=== PATIENT | female | born 1975 | race Caucasian/White ===

== ENCOUNTER 2017-09-25 12:19 | Inpatient (IN) | payer MEDICAID ==
[~2017-09-25] VITALS: Ht 152.4 cm; Wt 85.1 kg
[~2017-09-25 12:19] MED LIST: FERR27TA PO; PREN1TAB49 PO
[2017-09-25 12:33] VITALS: Ht 152.4 cm; Wt 85.1 kg
[2017-09-25 12:34] VITALS: BP 127/80; PULSE 79; RESP 18
--- NOTE | 2017-09-25 15:06 | HP ---
Date/Time of Note Date/Time of Note DATE: 09/25/17 TIME: 15:04 OB - History Hx of Present Free Text/Dictation Admitted complaining of uterine contractions started at 6:30 AM Chief Complaint: Uterine contractions Last Menstrual Period: Dec 24, 2016 Estimated Due Date: Oct 03, 2017 : 5 Para: 4 Care: Good Care Ultrasounds: Normal mid trimester US Obstetrical Complications: None Medical Complications: None Past Family/Social History * Past Medical, Surgical, Family and Obstetric Histories reviewed from chart. Blood Type: O+ Rubella: immune RPR/VDRL: Negative GBS Status: Negative HBsAG: Negative OB Admission Exam Vital Signs Vital Signs Vital Signs Date Time Temp Pulse Resp B/P Pulse Ox O2 Delivery O2 Flow Rate FiO2 09/25/17 12:34 98.4 79 18 127/80 Room Air Physical Exam HEENT: WNL Heart: Rhythm Normal Lungs: Clear, Equal Abdomen: WNL Extremities: Normal Reflexes: Normal Cervical Dilatation: 2cm Effacement: 50% Station: -3 Membranes: Intact Heart Rate: 140's Accelerations: Accelerations Present Decelerations: No Decelerations Varibility: Marked Contractions on Admission: 6-10 Minutes Apart Date/Time Contractions Began: September 25, 2017 at 6:30 AM Frequency of Contractions: Every 15 minutes Duration: Over 45 seconds Intensity: Mild OB Assessment/Plan Other Assessment: Term gestation Labor pain Concern about rupture of membrane occurred Other plan: We will do specific fetoprotein testing vaginally for confirmation of ruptured membrane If positive will start Pitocin augmentation of labor JESUS MANUEL GU MD Sep 25, 2017 15:06
[2017-09-25] MEDS ORDERED: LIDOCAINE 1% (MPF) 30 ML INJ INJ PRN (15:30)
[2017-09-25] MEDS ORDERED: METHYLERGONOVINE 0.2 MG INJ IM PRN (15:30)
[2017-09-25] MEDS ORDERED: MISOPROSTOL 200 MCG TAB PR PRN (15:30)
[2017-09-25] MEDS ORDERED: OXYTOCIN 30 UNITS/LR 500 ML IV SCH (15:30)
[2017-09-25] MEDS ORDERED: LACTATED RINGER'S 1,000 ML IV PRN (15:30)
[2017-09-25] MEDS ORDERED: OXYTOCIN 30 UNITS/LR 500 ML IV PRN (15:30)
[2017-09-25] MEDS ORDERED: IBUPROFEN 600 MG TAB PO PRN (15:30)
[2017-09-25] MEDS ORDERED: BUTORPHANOL 2 MG INJ IV PRN (15:30)
[2017-09-25] MEDS ORDERED: CARBOPROST 250 MCG INJ IM PRN (15:30)
[2017-09-25 16:01] LABS: BASOPHILS % 0.4 % (0.0-2.0); EOSINOPHILS % 0.3 % (0.0-7.0); HEMATOCRIT 42.7 % (37.0-47.0); HEMOGLOBIN 14.4 g/dl (12.0-16.0); LYMPHOCYTES % 19.2 % (15.0-51.0); MEAN CORPUSCULAR HEMOGLOBIN 29.4 pg (29.0-33.0); MEAN CORPUSCULAR HGB CONC 33.7 g/dl (32.0-37.0); MEAN CORPUSCULAR VOLUME 87.3 fl (82.0-101.0); MONOCYTE # 0.5 10^3/ul (0.3-0.9); MONOCYTES % 4.9 % (0.0-11.0); NEUTROPHIL # 7.9 10^3/ul (1.6-7.5); NEUTROPHILS % 74.8 % (39.0-77.0); PLATELET COUNT 240 10^3/UL (140-415); RED BLOOD COUNT 4.89 10^6/ul (4.20-5.40); RED CELL DISTRIBUTION WIDTH 14.9 % (11.5-14.5); WHITE BLOOD COUNT 10.6 10^3/ul (4.8-10.8)
[2017-09-25 16:23] LABS: INR 0.84; PARTIAL THROMBOPLASTIN TIME 29.7 Sec (25.0-35.0); PROTIME 11.5 Sec (12.2-14.2); PT RATIO 0.9
[2017-09-25] MEDS: LACTATED RINGER'S 1,000 ML IV SCH ×2 (16:26→16:35)
[2017-09-25] MEDS ORDERED: MINERAL OIL LIGHT 10 ML VIAL TOP ONE (16:30)
[2017-09-25] MEDS ORDERED: FENTAnyl 2MCG/ML-ROPIV 0.2% 100 ML ONE (16:34)
[2017-09-25] MEDS ORDERED: ONDANSETRON 4 MG INJ IV PRN ×2 (19:00→21:30)
[2017-09-25] MEDS ORDERED: FENTAnyl 2MCG/ML-ROPIV 0.2% 100 ML BAG EPI SCH ×2 (19:00→21:30)
[2017-09-25] MEDS ORDERED: TRIMETHOBENZAMIDE 100 MG/ML VIAL IM PRN ×2 (19:00→21:30)
[2017-09-25] MEDS ORDERED: DIPHENHYDRAMINE 50 MG INJ IV PRN ×2 (19:00→21:30)
[2017-09-25] MEDS ORDERED: NALOXONE (0.4 MG/ML) INJ IV PRN ×2 (19:00→21:30)
[2017-09-25] MEDS: OXYTOCIN 30 UNITS/LR 500 ML IV SCH (23:51)
--- NOTE | 2017-09-25 23:52 | LDN ---
Date/Time of Note Date/Time of Note DATE: 09/25/17 TIME: 23:50 Delivery Summary Weeks of Gestation 39 weeks Placenta Delivered: Spontaneously Meconium: none Episiotomy: No Perineal laceration: 0 Anesthesia type: Epidural Estimated blood loss: 300 Sponge & Needle done & correct: Yes All needle counts correct: Yes Any foreign bodies felt in the: No Problems: Infant Delivery Information Sex Sex: female Apgars 1 Minute: 8 5 Minute: 9 Suctioning Nose & mouth suctioned at nesha: Yes Delee suction performed: No Umbilical Cord Umbilical cord with: 3 Vessels Cord presentations: nuchal cord Nuchal cord present X: 1 Cord Blood was obtained: Yes Mother & Baby Disposition Disposition Mom & Baby to Maternity; Good: Yes MARY ANNE DUNCAN MD Sep 25, 2017 23:52
[2017-09-26] MEDS: OXYTOCIN 30 UNITS/LR 500 ML IV SCH (00:18)
--- NOTE | 2017-09-26 00:54 | DELSUM ---
Delivery Summary A-C Datetime Report Generated by CPN: 09/26/2017 00:54 DELIVERY PERSONNEL Press Tender: Perez, [place] MATERNAL INFORMATION Delivery Anesthesia: Epidural Medications in Delivery: 30 UNIT PITOCIN Estimated Blood Loss (ml): 300 Placenta Cultured: No Maternal Complications: Other Other Maternal Complications: AMA LABOR SUMMARY EDC: 09/30/2017 00:00 No. Babies in Womb: 1 Attempted: No Labor Anesthesia: Epidural LABOR INFORMATION Reason for Induction: Not Applicable Onset of Labor: 09/25/2017 06:40 Complete Dilatation: 09/25/2017 23:14 Oxytocin: N/A Group B Beta Strep: Negative Antibiotics # of Doses: 0 Steroids Given: None Reason Steroids Not Administered: Not Applicable MEMBRANES Membranes Rupture Method: Spontaneous Rupture of Membranes: 09/25/2017 22:43 Length of Rupture (hr): 0.88 Amniotic Fluid Color: Clear Amniotic Fluid Amount: Small Amniotic Fluid Odor: None STAGES OF LABOR Stage 1 hr: 16 Stage 1 min: 34 Stage 2 hr: 0 Stage 2 min: 22 Stage 3 hr: 0 Stage 3 min: 3 Total Time in Labor hr: 16 Total Time in Labor min: 59 VAGINAL DELIVERY Episiotomy: None Laceration Extension: N/A Laceration Type: None Laceration Repair: Not Applicable Initial Vag Sponge Count: 10 Final Vag Sponge Count: 10 Initial Vag Sharps Count: 1 Final Vag Sharps Count: 1 Sponge Count Correct: Yes Sharps Count Correct: Yes BABY A INFORMATION Delivery Date/Time: 09/25/2017 23:36 Method of Delivery: Vaginal Method of Delivery: Vaginal Born in Route : No : N/A Forceps: N/A Vacuum Extraction: N/A Shoulder Dystocia : N/A SHOULDER DYSTOCIA BABY A Infant Delivery Date/Time: 09/25/2017 23:36 PRESENTATION/POSITION BABY A Presentation: Cephalic Presentation: Cephalic Cephalic Presentation: Vertex Vertex Position: Left Occipital Anterior Breech Presentation: N/A PLACENTA INFORMATION BABY A Placenta Delivery Time : 09/25/2017 23:39 Placenta Method of Delivery: Spontaneous Placenta Status: Delivered SCORES BABY A Heart Rate 1 min: >100 bpm Resp Effort 1 min: Good Cry Reflex Irritability 1 min: Cough/Sneeze/Pulls Away Muscle Tone 1 min: Active Motion Color 1 min: Blue/Pale Resuscitation Effort 1 min: Tactile Stimulation SCORE 1 MIN: 8 Heart Rate 5 min: >100 bpm Resp Effort 5 min: Good Cry Reflex Irritability 5 min: Cough/Sneeze/Pulls Away Muscle Tone 5 min: Active Motion Color 5 min: Body Hallock, Extremit Blue Resuscitation Effort 5 min: Tactile Stimulation SCORE 5 MIN: 9 INFANT INFORMATION BABY A Gestational Age at Delivery: 39.2 Gestational Status: Full Term- 39- 40.6 Weeks Outcome : Liveborn Infant Condition : Stable Sex: Female Sex: Female IDENTIFICATION/MEDS BABY A ID Band Number: [id number] ID Band Location: Right Leg; Left Arm Sensor Applied: Yes Sensor Number: [id number] Sensor Location : Cord Clamp Vitamin K Given : Not Given Erythromycin Given: Not Given WEIGHT/LENGTH BABY A Birthweight (gm): 2580 Infant Weight (lb): 5 Weight (oz): 11 Length (in): 18.00 Length (cm): 45.72 CORD INFORMATION BABY A No. Cord Vessels: 3 Nuchal Cord : N/A Cord Blood Taken: Yes Infant Suction: Mouth; Nose ASSESSMENT BABY A Infant Complications: Multiple Variable Decels Physical Findings at Delivery: Within Normal Limits Respirations: Appears Normal [employer]/ALS Called : No Infant Care By: Nanci DAVID Transferred To: Remains with Mother
[2017-09-26] MEDS ORDERED: LACTATED RINGER'S 1,000 ML IV* SCH (01:58)
[2017-09-26] MEDS ORDERED: BENZOCAINE 20% 56 ML SPRAY TOP PRN (02:00)
[2017-09-26] MEDS ORDERED: OXYTOCIN 30 UNITS/LR 500 ML IV PRN (02:00)
[2017-09-26] MEDS ORDERED: MISOPROSTOL 200 MCG TAB PR PRN (02:00)
[2017-09-26] MEDS ORDERED: ACETAMINOPHEN 325 MG TAB PO PRN (02:00)
[2017-09-26] MEDS ORDERED: METHYLERGONOVINE 0.2 MG INJ IM PRN (02:00)
[2017-09-26] MEDS ORDERED: CARBOPROST 250 MCG INJ IM PRN (02:00)
[2017-09-26] MEDS ORDERED: WITCH HAZEL/GLYCERIN PAD PR PRN (02:00)
[2017-09-26] MEDS ORDERED: HYDROCODONE/APAP (5/325) TAB PO PRN (02:00)
[2017-09-26] MEDS ORDERED: DIBUCAINE 1% 30 GM OINT PR PRN (02:00)
[2017-09-26 02:30] VITALS: BP 134/50; PULSE 88; RESP 18
[2017-09-26 04:00] VITALS: BP 138/69; PULSE 83; RESP 18
[2017-09-26] MEDS: IBUPROFEN 600 MG TAB PO SCH ×3 (05:30→17:44)
[2017-09-26 08:20] VITALS: BP 125/75; PULSE 81; RESP 18
[2017-09-26] MEDS: SENNA/DOCUSATE NA (8.6MG/50MG) TAB PO SCH ×2 (09:28→21:20)
[2017-09-26 10:47] LABS: BASOPHILS % 0.3 % (0.0-2.0); EOSINOPHILS % 0.3 % (0.0-7.0); HEMATOCRIT 35.6 % (37.0-47.0); HEMOGLOBIN 12.1 g/dl (12.0-16.0); LYMPHOCYTES # 2.1 10^3/ul (0.8-2.9); LYMPHOCYTES % 15.2 % (15.0-51.0); MEAN CORPUSCULAR HEMOGLOBIN 29.6 pg (29.0-33.0); MEAN PLATELET VOLUME 9.3 fl (7.4-10.4); MONOCYTE # 0.6 10^3/ul (0.3-0.9); MONOCYTES % 4.6 % (0.0-11.0); NEUTROPHIL # 10.9 10^3/ul (1.6-7.5); NEUTROPHILS % 79.2 % (39.0-77.0); PLATELET COUNT 194 10^3/UL (140-415); RED BLOOD COUNT 4.09 10^6/ul (4.20-5.40); RED CELL DISTRIBUTION WIDTH 15.2 % (11.5-14.5); WHITE BLOOD COUNT 13.8 10^3/ul (4.8-10.8)
[2017-09-26 15:30] VITALS: BP 127/78; PULSE 77; RESP 18
--- NOTE | 2017-09-26 18:22 | DS ---
Date/Time of Note Date/Time of Note home next day DATE: 09/26/17 TIME: 18:15 Obstetrical Discharge Record Final Diagnosis Final Diagnosis: Term delivered Other Final Diagnosis S/P vaginal delivery Condition on Discharge Physical Assessment Last Vitals: se nurses notes Voiding: Yes Bowel Movement: Yes Breast: Soft, non-tender, Filling Fundus: Firm Abdomen and Incision: soft BS+ Episiotomy: NA Calf Tenderness: No Patient Condition: Good JESUS MANUEL GU MD Sep 26, 2017 18:21
--- NOTE | 2017-09-26 18:23 | PD.PPDC ---
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
[2017-09-26] MEDS ORDERED: IBUP-1542 PO (18:25)
[2017-09-26] MEDS: CEPHALEXIN 500 MG CAP PO SCH (18:50)
[2017-09-26 19:35] VITALS: BP 125/68; PULSE 80; RESP 19
[2017-09-26] MEDS ORDERED: INFLUENZA VIRUS VACCINE 0.5 ML (DISPENSING) IM* ONE (20:30)
[2017-09-27] MEDS: CEPHALEXIN 500 MG CAP PO SCH ×3 (00:17→12:49)
[2017-09-27] MEDS: IBUPROFEN 600 MG TAB PO SCH ×3 (00:17→12:49)
[2017-09-27 04:10] VITALS: BP 124/74; PULSE 67; RESP 17
[2017-09-27 08:00] VITALS: BP 125/76; PULSE 74; RESP 17
[2017-09-27] MEDS ORDERED: DIPHTH/TET/ACEL PERTUSS (ADULT) 0.5 ML VIAL IM* ONE (09:00)
[2017-09-27 09:03] LABS: BASOPHILS % 0.3 % (0.0-2.0); EOSINOPHILS # 0.1 10^3/ul (0.0-0.5); EOSINOPHILS % 1.1 % (0.0-7.0); HEMATOCRIT 38.6 % (37.0-47.0); HEMOGLOBIN 12.9 g/dl (12.0-16.0); LYMPHOCYTES # 1.9 10^3/ul (0.8-2.9); LYMPHOCYTES % 16.5 % (15.0-51.0); MEAN CORPUSCULAR HEMOGLOBIN 29.7 pg (29.0-33.0); MEAN CORPUSCULAR HGB CONC 33.4 g/dl (32.0-37.0); MEAN CORPUSCULAR VOLUME 88.7 fl (82.0-101.0); MEAN PLATELET VOLUME 9.1 fl (7.4-10.4); MONOCYTE # 0.5 10^3/ul (0.3-0.9); MONOCYTES % 4.6 % (0.0-11.0); NEUTROPHIL # 8.6 10^3/ul (1.6-7.5); PLATELET COUNT 214 10^3/UL (140-415); RED BLOOD COUNT 4.35 10^6/ul (4.20-5.40); RED CELL DISTRIBUTION WIDTH 15.6 % (11.5-14.5); WHITE BLOOD COUNT 11.2 10^3/ul (4.8-10.8)
[2017-09-27] MEDS: SENNA/DOCUSATE NA (8.6MG/50MG) TAB PO SCH (09:21)
[2017-09-28] MEDS ORDERED: INFLUENZA VIRUS VACCINE 0.5 ML (DISPENSING) IM* ONE (09:00)
== END 2017-09-27 16:10 | disposition home or self-care (01) | DRG 775 ==
LOC: OBT 12:19 → L-D 12:19 → OBT 13:48 → PP1 09-26 02:22
PROVIDERS: ADMIT Obstetrics & Gynecology; ATTEND Obstetrics & Gynecology
PROC: 10E0XZZ Delivery of Products of Conception, External Approach (ICD-10-PCS; principal; 2017-09-25)
PROC: 4A1HXCZ Monitoring of Products of Conception, Cardiac Rate, External Approach (ICD-10-PCS; 2017-09-25)
PROC: 3E0234Z Introduction of Serum, Toxoid and Vaccine into Muscle, Percutaneous Approach (ICD-10-PCS; 2017-09-26)
DX: O69.81X0 Labor and delivery complicated by cord around neck, without compression, not applicable or unspecified (principal); Z23 Encounter for immunization; Z37.0 Single live birth; Z3A.39 39 weeks gestation of pregnancy
CPT/HCPCS: 62319; 84112; 85025; 85610; 85730; 86592; 86900; 86901; 87340; 90686; 90715; 99464; G0463; J2590; J3010; J7120